=== PATIENT | female | born 1960 | race Caucasian/White ===

== ENCOUNTER 2023-09-15 09:02 | Emergency (ER) | payer OTHER, SELFPAY ==
[2023-09-15] VITALS (22 sets, daily range): BP systolic 116–171; BP diastolic 78–119; BMI 23.8
[2023-09-15 09:19] LABS: % Basophils 1.2 % (0-2); % Eosinophils 2.8 % (0-6); % Immature Granulocytes 0.4 % (0-0.5); % Lymphocytes 33.6 % (20.5-51.1); % Monocytes 8.6 % (1.7-9.3); % Neutrophils 53.4 % (42.2-75.2); Absolute Basophils 0.1 10^3/uL (0-0.2); Absolute Eosinophils 0.2 10^3/uL (0-0.7); Absolute Lymphocytes 1.9 10^3/uL (1.2-3.4); Absolute Monocytes 0.5 10^3/uL (0.1-0.6); Hematocrit 38.5 % (37.0-47.0); Hemoglobin 13.3 g/dL (12.0-16.0); Mean Corp Hgb Conc. 34.5 g/dL (33.0-37.0); Mean Corpuscular Volume 92.5 fL (81.0-99.0); Mean Platelet Volume 8.5 fL (7.4-10.4); Nucleated Red Blood Cells % 0 %; Platelet Count 269 10^3/uL (130-400); Red Blood Cell Count 4.16 10^6/uL (4.20-5.40); Red Cell Dist. Width 14.2 % (11.5-14.5); White Blood Cell Count 5.7 10^3/uL (4.8-10.8)
[2023-09-15] MEDS: DECADRON 10 MG IV (09:23)
[2023-09-15] MEDS: DUONEB 3 ML INH (09:23)
--- NOTE | 2023-09-15 09:32 | ED.GENMED ---
History of Present Illness
<Paul Roberson Jr., PA-C - Last Filed: 09/15/23 18:03>
General
Chief Complaint: Breathing Problem
Source: patient and family
Exam Limitations: none
Time Seen by Provider: 09/15/23 09:04
Nursing documentation reviewed up to this point in time: agreed with
Travel History
Have you had any contact with someone who has COVID-19?: No
Do you have any symptoms of coronavirus? Fever > 100 degrees, chills, cough, shortness of breath, sore throat, loss of taste or smell, muscle aches, or headache?: No
History of Present Illness
History of Present Illness:
62-year-old female presenting to the emergency department today with concerns of difficulty breathing after she believes she may have aspirated her lisinopril or amlodipine few hours prior to arrival to the emergency department immediately felt
wheezing and short of breath after taking her pills this morning. Went to urgent care and sent to the ER for further assessment. Denies additional concerns otherwise.
Review of Systems
<Paul Roberson Jr., PA-C - Last Filed: 09/15/23 18:03>
Review of Systems
Allergies reviewed?: Yes
All Other Systems: ROS reviewed and negative except as documented in HPI and ROS
Phy Exam
<Paul Roberson Jr., PA-C - Last Filed: 09/15/23 18:03>
Physical Exam
Physical Exam:
GENERAL: Alert , in no apparent distress
EYE: pupils equal and reactive
NECK: Supple, no significant adenopathy.
ENT: o/p clr, mmm.
CARDIAC: Regular rate and rhythm .
LUNGS: Wheezing to the right lower lung as well as rhonchi
ABDOMEN: Soft, without focal tenderness, no r/g, no cvat
NEUROLOGICAL: Alert and oriented, no focal neuro deficits
SKIN: Warm and dry, skin intact.
MUSCULOSKELETAL: No edema, well perfused.
PSYCH: Normal and appropriate interaction.
Scores
<Paul Roberson Jr., PA-C - Last Filed: 09/15/23 18:03>
Heart Failure Risk
Heart Failure Risk Score: Not Applicable
Course
<Paul Roberson Jr., PA-C - Last Filed: 09/15/23 18:03>
Orders/Labs/Results
Orders:
Orders
09/15/23 09:13
Complete Blood Count/With Diff Urgent
Comprehensive Metabolic Panel Urgent
09/15/23 09:20
Dexamethasone Sod Phosphate [Decadron] 10 mg IV NOW STA
Ipratropium/Albuterol Sulfate [Duoneb] 3 ml INH R NOW STA
CR Chest - 2 Views Urgent
Comment:
Reason For Exam: right sided wheezing after possibel pill aspiratio
09/15/23 09:28
Ampicillin/Sulbactam 3 G [Unasyn] 3 gm 0.9% Sodium Chloride 100 ml [Nss] 100 ml IV NOW
09/15/23 10:14
CT Chest W/o Iv Contrast Urgent
Comment:
Reason For Exam: right lower lung apiration
09/15/23 12:23
Propofol [Diprivan] 20 ml .ROUTE .STK-MED
09/15/23 12:43
Fentanyl Citrate/Pf [Sublimaze] 100 mcg .ROUTE .STK-MED ONE
09/15/23 13:03
Midazolam HCl [Versed] 2 mg .ROUTE .STK-MED ONE
09/15/23 13:05
Ketamine [Ketalar] 200 mg .ROUTE .STK-MED ONE
09/15/23 13:21
Midazolam HCl [Versed] 5 mg .ROUTE .STK-MED ONE
Abnormal Lab Results
09/15/23
09:13
RBC 4.16 L 10^6/uL
(4.20-5.40)
MCH 32.0 H pg
(27.0-31.0)
Carbon Dioxide 21 L mmol/L
(22-30)
BUN 27 H mg/dl
(7-17)
Glucose 103 H mg/dl
(70-99)
09/15/23 09:13
09/15/23 09:13
Vital Signs
Initial and Last Documented VS:
Initial Vital Signs
Pulse Ox
100
09/15/23 09:06
Last Documented Vital Signs
Temp Pulse Resp BP Pulse Ox
98 F 115 15 142/94 99
09/15/23 14:20 09/15/23 14:00 09/15/23 14:00 09/15/23 14:00 09/15/23 13:45
<Luis Antonio Alexis, DO - Last Filed: 09/15/23 14:02>
Orders/Labs/Results
Orders:
Orders
09/15/23 09:13
Complete Blood Count/With Diff Urgent
Comprehensive Metabolic Panel Urgent
09/15/23 09:20
Dexamethasone Sod Phosphate [Decadron] 10 mg IV NOW STA
Ipratropium/Albuterol Sulfate [Duoneb] 3 ml INH R NOW STA
CR Chest - 2 Views Urgent
Comment:
Reason For Exam: right sided wheezing after possibel pill aspiratio
09/15/23 09:28
Ampicillin/Sulbactam 3 G [Unasyn] 3 gm 0.9% Sodium Chloride 100 ml [Nss] 100 ml IV NOW
09/15/23 10:14
CT Chest W/o Iv Contrast Urgent
Comment:
Reason For Exam: right lower lung apiration
09/15/23 12:23
Propofol [Diprivan] 20 ml .ROUTE .STK-MED
09/15/23 12:43
Fentanyl Citrate/Pf [Sublimaze] 100 mcg .ROUTE .STK-MED ONE
09/15/23 13:03
Midazolam HCl [Versed] 2 mg .ROUTE .STK-MED ONE
09/15/23 13:05
Ketamine [Ketalar] 200 mg .ROUTE .STK-MED ONE
09/15/23 13:21
Midazolam HCl [Versed] 5 mg .ROUTE .STK-MED ONE
Abnormal Lab Results
09/15/23
09:13
RBC 4.16 L 10^6/uL
(4.20-5.40)
MCH 32.0 H pg
(27.0-31.0)
Carbon Dioxide 21 L mmol/L
(22-30)
BUN 27 H mg/dl
(7-17)
Glucose 103 H mg/dl
(70-99)
09/15/23 09:13
09/15/23 09:13
Vital Signs
Initial and Last Documented VS:
Initial Vital Signs
Pulse Ox
100
09/15/23 09:06
Last Documented Vital Signs
Temp Pulse Resp BP Pulse Ox
98 F 115 15 142/94 99
09/15/23 14:20 09/15/23 14:00 09/15/23 14:00 09/15/23 14:00 09/15/23 13:45
Procedures
<Luis Antonio Alexis, DO - Last Filed: 09/15/23 14:02>
Moderate Sedation
ASA Risk Score: Class II
Chart and allergies reviewed: Yes
Consent for anesthesia obtained: Yes
Time out completed (validating right patient & procedure): Yes
Moderate Sedation Start Time(when first medication is given): 12:46
History of difficult intubation: No
Airway free of obstruction: Yes
Patient has a gag reflex: Yes
Patient is able to open mouth: Yes
Patient has no dentures: Yes
Patient has no loose teeth: Yes
Medication administered by Provider during Moderate Sedation: IV Propofol (mg)
Total dose administered: 200
Time drug administered: 12:46
Moderate Sedation Procedure End Time: 13:23
Comment: Pt was given total of 200mg Propofol, 2mg Versed, and 140mg of Ketamine
<Paul Roberson Jr., PA-C - Last Filed: 09/15/23 18:03>
MDM/Problems Addressed
MDM/Problems Addressed:
62-year-old female presenting to the emergency department today after she believes she may have aspirated a pill earlier today has had wheezing and rhonchi to the right lower lung. Normal pulse ox normal vital signs throughout ER stay initial x-ray
without acute abnormality labs unremarkable other than slightly elevated BUN to creatinine ratio. Case discussed with the mine expert that recommends and CT scan showed potential filling concerning for aspiration though unclear if there is truly
a pill there. The mine expert recommend doing a bronchoscopy which was attempted at bedside but unsuccessful. Patient generally doing very well here it was recommended for close outpatient follow-up but otherwise stable for discharge on
antibiotics and steroids. Return precautions given.
<Paul Roberson Jr., PA-C - Last Filed: 09/15/23 18:03>
*Critical Care Note
Total Time (30-74mins, 75-104mins- exclusive of procedures): Not Applicable
ED Attending Note
<Paul Roberson Jr., PA-C - Last Filed: 09/15/23 18:03>
-
Portions of this chart may have been created with voice recognition software.� Occasional wrong word or��sound alike� substitutions may have occurred due to the inherent limitations of voice recognition software.
Discharge Plan
Departure
Patient Disposition: Home (Routine Discharge)
Date of Disposition: 09/15/23
Time of Disposition: 14:17
Patient with high blood pressure during this ER visit?: No
Condition: Good
Covid-19: Not Applicable
Discharge Problem:
Aspiration into airway
Instructions: Aspiration Pneumonia (DC)
Prescriptions:
New
amoxicillin-pot clavulanate 875-125 mg tablet
1 tab PO BID 5 Days Qty: 10 0RF
prednisone 20 mg tablet
40 mg PO DAILY 4 Days Qty: 8 0RF
No Action
venlafaxine 150 mg capsule,extended release 24hr
150 mg PO DAILY
amlodipine 10 mg tablet
10 mg PO DAILY
lisinopril 40 mg tablet
40 mg PO DAILY
Referrals:
Kimberly Flores DO [Active] - (2 weeks, PFT)
Marleny Friend PA-C [Family Provider] -
Activity Restrictions/Additional Instructions:
He can to the emergency department with concerns of potential aspiration of your medication. There is no evidence of significant worsening at this time. Please take the prescribed antibiotics and steroid to reduce risk of complications and
follow-up closely with pulmonology. Return to the emergency department for any worsening, new or concerning symptoms.
Interventions
Interventions:
*Risk Screen - Suicide Last Done: 09/15/23 09:11
*Neglect/Abuse Screening Last Done: 09/15/23 09:11
*Nursing Disposition Last Done: 09/15/23 14:22
ED- Cardiac Assessment Last Done: 09/15/23 09:10
ED- Pulmonary Assessment Last Done: 09/15/23 09:10
Discharge Date and Time
Discharge Date/Time: 09/15/23 14:33
Print Language: CHINESE
[2023-09-15 09:43] LABS: ALT (SGPT) 17 U/L (0-35); AST (SGOT) 27 U/L (14-36); Albumin 4.8 g/dl (3.5-5.0); Alkaline Phosphatase 100 U/L (38-126); Blood Urea Nitrogen 27 mg/dl (7-17); Calcium 10.2 mg/dl (8.4-10.2); Carbon Dioxide 21 mmol/L (22-30); Chloride 105 mmol/L (98-107); Estimated Creatinine Clearance 69 ml/min; Glucose 103 mg/dl (70-99); Potassium 4.5 mmol/L (3.5-5.1); Sodium 137 mmol/L (135-145); Total Bilirubin 0.5 mg/dl (0.2-1.3); Total Protein 7.9 g/dl (6.3-8.2); eGFR > 60.00
[2023-09-15] MEDS: UNASYN IV (10:01)
--- NOTE | 2023-09-15 12:12 | CON.PUL ---
Consultation
Consultation Request
Date/Time Consultation Requested: 09/15/23
Date/Time Consultation Performed: 09/15/23
Performing Provider: Sandra
Reason for Consultation: Aspiration
Medical History
-
History of Present Illness:
Patient is a 62 year old F with history of HTN, pulmonary nodule, osteoporosis, presenting to ER for acute aspiration this AM of her pills including amlodipine and lisinopril tablets. She generally has no lung disease or symptoms prior to this
event. Had immediate SOB, R sided pain, wheezing. CXR not showing acute abnormalities but follow up CT showing possible 2mm FB at RLL. This could also be retained mucus, difficult to discern on imaging.
She has been seen in past for incidental pulmonary nodule on L that is read as stable on report.
She otherwise has no lung disease including asthma.
Stable on RA at this time, not in acute distress.
Past Medical History
Past Medical History: Other (see list below)
Social History
Tobacco: Non-smoker
Alcohol: None
Drug: None
Family History
Family History: Reviewed & Not Pertinent
Allergies / Home Medications
Allergies
Allergy/AdvReac Type Severity Reaction Status Date / Time
No Known Allergies Allergy Unverified 02/01/23 14:23
Home Medications
�Medication �Instructions �Recorded �Confirmed �Last Taken �Type
cephalexin 500 mg capsule 500 mg PO TID 5 days #15 caps 02/01/23 Unknown Rx
Review of Systems
-
History Source: Patient
All other systems: Negative unless noted
Vitals / Labs / Diagnostic Testing
Vital Signs
Temp Pulse Resp BP Pulse Ox
98.9 F 102 18 129/92 100
09/15/23 09:09 09/15/23 11:19 09/15/23 11:19 09/15/23 11:09 09/15/23 11:15
Lab Data
09/15/23 09:13
05/16/24 09:13
Diagnostic Testing:
Physical Exam
-
HEENT: Normocephalic, Anicteric and Moist Mucous Membranes
Cardiovascular: S1/S2 and Regular Rhythm
Respiratory: Clear (overall clear), Wheeze (mild at R base) and Non-Labored Respirations
GI: Soft, Non Distended and Non Tender
Neurology: Awake, Alert, Oriented, AO x 3 and No Motor Deficits
Skin: Warm, Dry and Good Color
General: Comfortable, Pain (R base) and Other (NAD)
Assessment
-
Patient is a 62 year old F with history of HTN, pulmonary nodule, osteoporosis, presenting to ER for acute aspiration this AM of her pills including amlodipine and lisinopril tablets. She generally has no lung disease or symptoms prior to this
event. Had immediate SOB, R sided pain, wheezing. CXR not showing acute abnormalities but follow up CT showing possible 2mm FB at RLL. This could also be retained mucus, difficult to discern on imaging.
She has been seen in past for incidental pulmonary nodule on L that is read as stable on report. We are consulted for eval.
Acute foreign body ingestion suspected in RLL
Acute wheezing/SOB
R sided pain
Conditions present [employer]
Pulmonary nodule, 5mm
HTN
Anxiety
Irregular heartbeat
Chronic sinusitis
Hiatal hernia
Osteoarthritis
1986
sinus surgery 2014
spinal surgery 2012
[facility] 05/2021
ER- lower right abdominal pain 01/2023
Plan
She is currently stable on RA, but otherwise notes wheezing and pain on R
Initial CXR nondiagnostic
FU CT obtained in ER showing possible 2mm obstruction at level of RLL
Due to her symptoms she was agreeable to bronchoscopy evaluation
We will obtain consent and evaluate
This will be done at bedside given no staff in suite
If negative, can likely send home with inhalers, pain relief
Reviewed case with ER
She has history of incidental pulmonary nodule in LLL, this was considered stable on repeat study
Can follow up with our office for this and/or if she has persistent complaints
We will arrange FU post discharge from ER
Discussed case with patient, daughter at bedside and with ER
Diagnostic Data
CT Chest 09/15/23- 1. Focal filling defect within bronchiole to the posterior basal right lower lobe as above. This could represent aspirated small foreign body, or possibly residual of partially dissolved foreign body given diameter of the
bronchiole of approximately 2 mm at this level. Small amount of probable postobstructive atelectatic/inflammatory change as above.
2. Left lung subcentimeter nodules/focal opacities as described, without significant interval increase in size as compared with 02/24/2023 examination.
02/24/23- 1. Stable solitary 5.5 mm left lower lobe pulmonary nodule. No additional pulmonary nodules. If the patient is considered high risk, an optional follow-up noncontrast CT chest can be obtained in 12 months.
--- NOTE | 2023-09-15 13:32 | W.PN.UPDATE ---
Update Note
Progress Note Update
Procedure at bedside: Diagnostic Bronchoscopy
Time in: 12:30PM
Time out: 13:30PM
Informed consent obtained and placed in chart. Sedation given in ER.
Procedure note: Patient received fentanyl 50mcg x 1, propofol 200mcg IV, versed 2mg IV x 1, ketamine 1mg/kg but still awake.
We attempted procedure while somewhat conscious, vocal cords are very small demonstrating apneas and snoring upon entry. She has very enlarged epiglottis requiring jaw thrust and enlarged arytenoid cartilage surrounding cords. She was demonstrating
abnormal adduction of cords with inhalation making passing of scope difficult. This was re-attempted with more sedation, extension of neck/repositioning but resulted in the same. Scope could not be passed through cords.
Procedure aborted as there was no clear benefit to continued attempts.
This was reviewed with patient and daughter.
---
Plan discussed with pharmacy that likely reabsorption of tablet (if present) would not be considered harmful.
Can repeat CT chest as OP for further assessment and planning if bronchoscopy should be reattempted.
Can give empiric course of augmentin and prednisone for 5 days.
Continued observation in ER with plan for discharge if improving.
== END 2023-09-15 14:33 | disposition home or self-care (01) ==
LOC: EMR 09:02
PROVIDERS: Physician Assistant; EMERGENCY PHYSICIAN Emergency Medicine; FAMILY PHYSICIAN Physician Assistant Medical
DX: T17.908A Unspecified foreign body in respiratory tract, part unspecified causing other injury, initial encounter (principal); X58.XXXA Exposure to other specified factors, initial encounter
CPT/HCPCS: 99284; 94640; 96365; 71046; 71250; 80053; 85025

== ENCOUNTER → 2023-11-02 08:28 | Outpatient (REF) | payer OTHER, SELFPAY | LOC: RAD 08:28 | PROVIDERS: ATTENDING PHYSICIAN Family Medicine | DX: R10.84 Generalized abdominal pain (principal) | CPT/HCPCS: 78264; A9541 ==

== ENCOUNTER 2023-11-02 11:23 | Emergency (ER) | payer OTHER, SELFPAY ==
[2023-11-02 11:28] VITALS: BP 126/90
[2023-11-02 11:44] VITALS: BP 115/82
--- NOTE | 2023-11-02 11:54 | ED.GENMED ---
History of Present Illness
<Nancy Calderon PA-C - Last Filed: 11/02/23 15:45>
General
Chief Complaint: Allergic Reaction
Source: patient
Exam Limitations: none
Time Seen by Provider: 11/02/23 11:43
Nursing documentation reviewed up to this point in time: agreed with
History of Present Illness
History of Present Illness:
This is 62-year-old female with a past medical history of hypertension, hyperlipidemia presenting to the emergency department today with concerns of right-sided facial swelling that progressed to lip swelling. Patient states that she noticed the
right sided facial swelling when she woke up this morning. Patient states that she had to nuclear scan scheduled today and so she went to go for the scan when she was getting ready to get the scan done when her lips started to swell as well.
Patient denies any shortness of breath or dysphagia. Patient states that she has had this right side swelling before in the past a few times but lasted an hour or 2 and gone away on its own. Patient denies any rashes. Patient denies any known
allergies. Patient has any chest pain, belly pain, any nausea or vomiting. Of note, patient is been on lisinopril for few years. Also, patient had a left-sided lower root canal a few days ago but patient states that her pain has been
well-controlled since. Patient [place] any fevers or chills. Patient denies any tongue swelling.
Review of Systems
<Nancy Calderon PA-C - Last Filed: 11/02/23 15:45>
Review of Systems
All Other Systems: ROS reviewed and negative except as documented in HPI and ROS
Phy Exam
<Nancy Calderon PA-C - Last Filed: 11/02/23 15:45>
Physical Exam
Physical Exam:
General: Patient is well appearing and in no acute distress; non-toxic
Skin: Warm and dry, no rashes or lesions
Head: Normocephalic, atraumatic. Swelling noted of the right lower jaw and lips.
Eyes: Sclera non-icteric. EOMs intact. No scleral injection.
Mouth: No deviation of the tongue. No tongue swelling. No intraoral lesions. Uvula midline.
Cardiac: Regular rate and rhythm, no murmurs.
Peripheral Vascular: No lower extremity swelling or edema
Pulm: Normal respiratory effort
Abdomen: No abdominal tenderness
Musculoskeletal: TMJ joints intact bilaterally. No tenderness palpation of the right lower mandible. No tenderness palpation of the facial bones.
Neuro: CN II-XII intact, no focal neurologic deficits.
Psychiatric: Appropriate mood and affect.
Course
<Nancy Calderon PA-C - Last Filed: 11/02/23 15:45>
Orders/Labs/Results
Orders:
Orders
11/02/23 11:54
IV Insert/Care/Rem.- Treatment PRN
Dexamethasone Sod Phosphate [Decadron] 10 mg IV NOW STA
Diphenhydramine [Benadryl] 25 mg IV NOW STA
Famotidine [Pepcid] 20 mg IV NOW STA
Vital Signs
Initial and Last Documented VS:
Initial Vital Signs
Temp Pulse Resp BP Pulse Ox
98.7 F 102 18 126/90 99
11/02/23 11:28 11/02/23 11:28 11/02/23 11:28 11/02/23 11:28 11/02/23 11:28
Last Documented Vital Signs
Temp Pulse Resp BP Pulse Ox
98.7 F 102 18 117/78 98
11/02/23 11:28 11/02/23 11:28 11/02/23 11:28 11/02/23 13:00 11/02/23 13:01
Marileelt;Mitch Holly DO - Last Filed: 11/02/23 12:32>
Orders/Labs/Results
Orders:
Orders
11/02/23 11:54
IV Insert/Care/Rem.- Treatment PRN
Dexamethasone Sod Phosphate [Decadron] 10 mg IV NOW STA
Diphenhydramine [Benadryl] 25 mg IV NOW STA
Famotidine [Pepcid] 20 mg IV NOW STA
Vital Signs
Initial and Last Documented VS:
Initial Vital Signs
Temp Pulse Resp BP Pulse Ox
98.7 F 102 18 126/90 99
11/02/23 11:28 11/02/23 11:28 11/02/23 11:28 11/02/23 11:28 11/02/23 11:28
Last Documented Vital Signs
Temp Pulse Resp BP Pulse Ox
98.7 F 102 18 117/78 98
11/02/23 11:28 11/02/23 11:28 11/02/23 11:28 11/02/23 13:00 11/02/23 13:01
<Nancy Calderon PA-C - Last Filed: 11/02/23 15:45>
MDM/Problems Addressed
Differential Diagnosis Includes:
ddx include angioedema/swelling---allergic reaction, thong's angina, lisinopril reaction, anaphylaxis
MDM/Problems Addressed:
Swelling:
This is 62-year-old female with a past medical history of hypertension, hyperlipidemia presenting to the emergency department today with concerns of right-sided facial swelling that progressed to lip swelling. Patient does take lisinopril, she has
been on this for few years. Patient denies any shortness of breath or trouble swallowing. Patient was going for nuclear medicine scan today when she started to have a lot of lip swelling right before the imaging. Patient was sent to emergency
department. Here in the ER, her vitals are stable and her airway is intact. Patient was given Decadron, famotidine, and Benadryl through the IV. On reevaluation, patient states that she does feel better and her right-sided swelling seems to go
down a bit. She still has no new tongue swelling. Patient is stable for discharge, advised to stop lisinopril, advised to take prednisone for the next few days. Patient will follow with her family doctor. All patient's questions were answered.
I reviewed this case with my attending Dr. Holly.
Chronic conditions affecting care:
HTN on lisinopril, HLP
Acute Exacerbation and/or Progression of Chronic Illness:
hypertension on lisinopril
<Nancy Calderon PA-C - Last Filed: 11/02/23 15:45>
*Pulse Oximetry
Patient hypoxic: no
*Critical Care Note
Total Time (30-74mins, 75-104mins- exclusive of procedures): Not Applicable
Data Reviewed
Review of Other/Old Records Reveals: Records (Reviewed ER physician documentation from 09/15/2023) and Discharge Summary (no discharge summaries in [facility] to review )
Source: patient and records
Further Testing Considered But Not Given:
considered longer observation/CT scan of neck however patient has no tongue involvement, no shortness of breath, no dysphagia, no dental pain, no fever
<Nancy Calderon PA-C - Last Filed: 11/02/23 15:45>
Update Note
Update Note:
12:53 pm-- Patient states that she feels a lot more comfortable, swelling still noticeable but no tongue involvement
ED Attending Note
<Nancy Calderon PA-C - Last Filed: 11/02/23 15:45>
-
Portions of this chart may have been created with voice recognition software.� Occasional wrong word or��sound alike� substitutions may have occurred due to the inherent limitations of voice recognition software.
<Mitch Holly, - Last Filed: 11/02/23 12:32>
ED Attending Note
Patient seen and examined by attending physician: Yes
I performed the substantive portion of visit, reviewed & personally made and approve the management plan that is documented in note by myself or KARLEY.: Yes
ED Attending Note:
I agree with Hope's note.
Pt developed swelling of lips and left side of mouth today. Pt has had a couple episodes (much more mild). She does take lisinopril and has for years. No difficulty breathing.
VSS
Angioedema of lips. No tongue or palate involvment.
steroid/benadryl/observe
Discharge Plan
Departure
Patient Disposition: Home (Routine Discharge)
Date of Disposition: 11/02/23
Time of Disposition: 12:57
Patient with high blood pressure during this ER visit?: Yes
Condition: Good
Discharge Problem:
Angioedema
Instructions: Adverse Drug Reactions, Adult (DC), BLOOD PRESSURE
Prescriptions:
New
prednisone 20 mg tablet
40 mg PO DAILY 3 Days Qty: 6 0RF
No Action
venlafaxine 150 mg capsule,extended release 24hr
150 mg PO DAILY
amlodipine 10 mg tablet
10 mg PO DAILY
Patient Comments:
11/02/2023, pt. took one of her blood pressure pills this morning but dropped one of her blood pressure pills down the sink accidentally this morning and doesn't know if it was this one or her Lisinopril.
lisinopril 40 mg tablet
40 mg PO DAILY
Patient Comments:
11/02/2023, pt. took one of her blood pressure pills this morning but dropped one of her blood pressure pills down the sink accidentally this morning and doesn't know if it was this one or her Amlodipine.
alprazolam 0.25 mg Tablet
0.125 mg PO DAILYPRN PRN (Reason: anxiety)
Referrals:
Meron Irene DO [Family Provider] -
Activity Restrictions/Additional Instructions:
PLEASE STOP TAKING YOUR LISINOPRIL. PLEASE FOLLOW UP WITH YOUR PRIMARY CARE PROVIDER.
Tomorrow, please starting taking prednisone. Please take two 20 mg tablets (40 mg total) once daily for 3 days.
Please return emergency department should you experience shortness of breath, trouble swallowing, chest pain, tongue swelling, abdominal pain, increasing facial swelling, or any other signs or symptoms concerning to you.
Interventions
Interventions:
*Risk Screen - Suicide Last Done: 11/02/23 11:28
*General Assessment Last Done: 11/02/23 11:28
*Neglect/Abuse Screening Last Done: 11/02/23 11:28
ED- Fall Risk Assessment Last Done: 11/02/23 13:12
*ED COVID-19 Vaccine History Last Done: 11/02/23 13:12
*Nursing Disposition Last Done: 11/02/23 13:12
ED- Cardiac Assessment Last Done: 11/02/23 12:20
ED- Pulmonary Assessment Last Done: 11/02/23 12:20
ED-Skin Assessment Last Done: 11/02/23 12:20
Discharge Date and Time
Discharge Date/Time: 11/02/23 13:12
Print Language: GHANAIAN
[2023-11-02 12:00] VITALS: BP 114/81
[2023-11-02] MEDS: BENADRYL 25 MG IV (12:10)
[2023-11-02] MEDS: DECADRON 10 MG IV (12:11)
[2023-11-02] MEDS: PEPCID 20 MG IV (12:11)
[2023-11-02 13:00] VITALS: BP 117/78
== END 2023-11-02 13:12 | disposition home or self-care (01) ==
LOC: EMR 11:23
PROVIDERS: EMERGENCY PHYSICIAN Emergency Medicine; FAMILY PHYSICIAN Family Medicine
DX: T78.3XXA Angioneurotic edema, initial encounter (principal); I10 Essential (primary) hypertension; E78.5 Hyperlipidemia, unspecified
CPT/HCPCS: 99284; 96374; 96375

== ENCOUNTER → 2023-11-04 08:16 | Outpatient (REF) | payer OTHER, SELFPAY | LOC: RAD 08:16 | PROVIDERS: ATTENDING PHYSICIAN Family Medicine | DX: R10.11 Right upper quadrant pain (principal) | CPT/HCPCS: 78226; A9537 ==

== ENCOUNTER → 2024-01-24 10:21 | Outpatient (REF) | payer OTHER, SELFPAY | LOC: HWRAD 10:21 | PROVIDERS: ATTENDING PHYSICIAN Internal Medicine Critical Care Medicine; FAMILY PHYSICIAN Family Medicine | DX: R91.1 Solitary pulmonary nodule (principal) | CPT/HCPCS: 71250 ==

== ENCOUNTER → 2024-02-10 13:17 | Outpatient (REF) | payer SELFPAY | LOC: RAD 13:17 | PROVIDERS: ATTENDING PHYSICIAN Internal Medicine Cardiovascular Disease; FAMILY PHYSICIAN Family Medicine | DX: E78.00 Pure hypercholesterolemia, unspecified (principal) | CPT/HCPCS: 75571 ==

== ENCOUNTER → 2024-12-24 09:22 | Outpatient (REF) | payer MEDICARE, SELFPAY | LOC: RAD 09:22 | PROVIDERS: ATTENDING PHYSICIAN Family Medicine | DX: R13.19 Other dysphagia (principal); R22.1 Localized swelling, mass and lump, neck | CPT/HCPCS: 76536 ==

== ENCOUNTER → 2025-01-30 13:25 | Outpatient (REF) | payer MEDICARE, SELFPAY | LOC: HWRAD 13:25 | PROVIDERS: ATTENDING PHYSICIAN Internal Medicine Critical Care Medicine; FAMILY PHYSICIAN Family Medicine | DX: R91.1 Solitary pulmonary nodule (principal); Z12.31 Encounter for screening mammogram for malignant neoplasm of breast | CPT/HCPCS: 71250; 77063; 77067 ==